=== PATIENT | female | born 1940 | race Caucasian/White ===

== ENCOUNTER 2016-12-29 22:14 | Emergency (ER) | payer OTHER, BC ==
[~2016-12-29] VITALS: Ht 147.3 cm; Wt 57.5 kg
[2016-12-29 22:27] VITALS: Ht 147.3 cm; Wt 57.5 kg
[2016-12-30] MEDS ORDERED: SOD CHLORIDE 0.9% 500 ML IV STA (00:18)
[2016-12-30] MEDS ORDERED: ONDANSETRON 4 MG INJ IV STA (00:18)
[2016-12-30 00:21] VITALS: BP 144/89; PULSE 84; RESP 25; TEMP 98.2
[2016-12-30 00:28] LABS: ADD SCAN DIFF NO
[2016-12-30 00:30] LABS: BASOPHILS % 0.2 % (0.0-2.0); EOSINOPHILS # 0.1 10^3/ul (0.0-0.5); EOSINOPHILS % 0.4 % (0.0-7.0); HEMOGLOBIN 14.7 g/dl (12.0-16.0); LYMPHOCYTES % 8.5 % (15.0-51.0); MEAN CORPUSCULAR HEMOGLOBIN 29.2 pg (29.0-33.0); MEAN CORPUSCULAR HGB CONC 32.7 g/dl (32.0-37.0); MEAN CORPUSCULAR VOLUME 89.3 fl (82.0-101.0); MEAN PLATELET VOLUME 9.9 fl (7.4-10.4); MONOCYTE # 0.9 10^3/ul (0.3-0.9); MONOCYTES % 7.5 % (0.0-11.0); NEUTROPHIL # 9.6 10^3/ul (1.6-7.5); PLATELET COUNT 247 10^3/UL (140-415); RED BLOOD COUNT 5.04 10^6/ul (4.20-5.40); RED CELL DISTRIBUTION WIDTH 12.9 % (11.5-14.5); WHITE BLOOD COUNT 11.5 10^3/ul (4.8-10.8)
[2016-12-30 00:39] LABS: POTASSIUM 3.9 mmol/L (3.5-5.1)
[2016-12-30 00:41] LABS: BILIRUBIN,INDIRECT 0.1 mg/dl (0-1.1); CREATININE 0.41 mg/dl (0.44-1.00)
[2016-12-30 00:42] LABS: ALBUMIN/GLOBULIN RATIO 1.42; BILIRUBIN,TOTAL 0.1 mg/dl (0.2-1.3); CALCIUM 8.9 mg/dl (8.4-10.2); TOTAL PROTEIN 6.8 g/dl (6.1-8.1)
[2016-12-30 00:50] LABS: INR 0.99; PROTIME 13.1 Sec (12.2-14.2)
[2016-12-30 00:51] LABS: PARTIAL THROMBOPLASTIN TIME 24.7 Sec (25.0-35.0)
[2016-12-30 00:54] LABS: TROPONIN-I 0.062 ng/ml (0.00-0.12)
[2016-12-30 01:32] LABS: ADD UMIC YES; URINE BILIRUBIN (Dip) NEGATIVE (NEGATIVE); URINE BLOOD (Dip) NEGATIVE (NEGATIVE); URINE COLOR LT. YELLOW (YELLOW); URINE GLUCOSE (Dip) NEGATIVE (NEGATIVE); URINE KETONES (Dip) NEGATIVE (NEGATIVE); URINE LEUKOCYTE ESTERASE (Dip) NEGATIVE (NEGATIVE); URINE NITRITE (Dip) NEGATIVE (NEGATIVE); URINE TOTAL PROTEIN (Dip) 1+ (NEGATIVE); URINE UROBILINOGEN (Dip) 0.2 E.U./dL (0.1-1.0)
[2016-12-30 03:05] LABS: SQUAMOUS EPITHELIAL CELL,UR RARE; URINE RBCS NONE SEEN /HPF (0)
--- NOTE | 2016-12-30 03:10 | RADRPT ---
PROCEDURE: XR Chest. CLINICAL INDICATION: Pain. TECHNIQUE: Single frontal chest x-ray. COMPARISON: None. FINDINGS: Heart is mildly enlarged.. There is no CHF.. No focal infiltrate is seen. There is no pleural effu jamey. There is no pneumothorax. The osseous structures are unremarkable. IMPRESSION: Mild cardiomegaly. No focal infiltrate or CHF. RPTAT: [facility]VK .Arvin Joy MD, Date Time Electronically viewed and signed by .Arvin Joy MD, on 12/30/2016 03:10 .K/
--- NOTE | 2016-12-30 04:44 | ERD ---
ER Documentation Chief Complaint Date/Time DATE: 12/30/16 TIME: 04:36 Chief Complaint abd pain/vomiting/cough x 1 day HPI 76-year-old female presenting with nausea and vomiting for the past few hours. Her vomiting is nonbloody and nonbilious. She denies any associated chest pain or abdominal pain. No associated headaches, dizziness, or focal weakness. She states that she has been coughing today without any phlegm. Otherwise she has been feeling okay. No diarrhea or constipation. No dysuria, hematochezia or melena. ROS All systems reviewed and are negative except as per history of present illness. Allergies Allergies: Coded Allergies: No Known Drug Allergies (Verified Allergy, Unknown, 12/29/16) PMhx/Soc Medical and Surgical Hx: pt denies Surgical Hx History of Surgery: No Hx Neurological Disorder: No Hx Respiratory Disorders: No Hx Cardiac Disorders: No Hx Psychiatric Problems: Yes (DEPRESSION) Hx Miscellaneous Medical Probl: No (HYPOTHYROID, NEUROTIC LEG PAIN) Hx Alcohol Use: No Hx Substance Use: No Hx Tobacco Use: No Smoking Status: Never smoker FmHx Family History: No diabetes Physical Exam Vitals Vital Signs Date Time Temp Pulse Resp B/P Pulse Ox O2 Delivery O2 Flow Rate FiO2 12/30/16 00:21 98.2 84 25 144/89 97 Room Air 12/29/16 22:27 99.8 90 20 182/81 97 Physical Exam Const: Pleasant, laughing, no distress, nontoxic Head: Atraumatic Eyes: Normal Conjunctiva, Sean, EOMI, no nystagmus ENT: Normal External Ears, Nose and Mouth. Neck: Full range of motion..~ No meningismus. Resp: Clear to auscultation bilaterally Cardio: Regular rate and rhythm, no murmurs Abd: Soft, non tender, non distended. No rebound or guarding. Normal bowel sounds Skin: No petechiae or rashes Back: No midline or flank tenderness Ext: No cyanosis, or edema Neur: Awake and alert and oriented 3, cranial nerves intact, strength and sensations intact in all 4 extremities, normal gait Psych: Normal Mood and Affect Result Diagram: 12/30/16 0015 12/30/16 0015 Results 24 hrs Laboratory Tests Test 12/30/16 00:15 12/30/16 00:35 3/12/17 01:15 Activated Partial Thromboplast Time 24.7Sec Alanine Aminotransferase (ALT/SGPT) 32IU/L Albumin 4.0g/dl Albumin/Globulin Ratio 1.42 Alkaline Phosphatase 101IU/L Anion Gap 17 Aspartate Amino Transf (AST/SGOT) 23IU/L Basophils # 0.010^3/ul Basophils % 0.2% Blood Urea Nitrogen 26mg/dl Calcium Level 8.9mg/dl Carbon Dioxide Level 27mmol/L Chloride Level 103mmol/L Creatinine 0.41mg/dl Direct Bilirubin 0.00mg/dl Eosinophils # 0.110^3/ul Eosinophils % 0.4% Globulin 2.80g/dl Glucose Level 144mg/dl Hematocrit 45.0% Hemoglobin 14.7g/dl INR International Normalized Ratio 0.99 Indirect Bilirubin 0.1mg/dl Lipase 93U/L Lymphocytes # 1.010^3/ul Lymphocytes % 8.5% Mean Corpuscular Hemoglobin 29.2pg Mean Corpuscular Hemoglobin Concent 32.7g/dl Mean Corpuscular Volume 89.3fl Mean Platelet Volume 9.9fl Monocytes # 0.910^3/ul Monocytes % 7.5% Neutrophils # 9.610^3/ul Neutrophils % 83.0% Nucleated Red Blood Cells # 0.010^3/ul Nucleated Red Blood Cells % 0.0/100WBC Platelet Count 57245^3/UL Potassium Level 3.9mmol/L Prothrombin Time 13.1Sec Prothrombin Time Ratio 1.0 Red Blood Count 5.0410^6/ul Red Cell Distribution Width 12.9% Sodium Level 143mmol/L Total Bilirubin 0.1mg/dl Total Protein 6.8g/dl Troponin I 0.062ng/ml White Blood Count 11.510^3/ul Bedside Glucose 130mg/dL Lactic Acid Level 1.1mmol/L Urine Bilirubin NEGATIVE Urine Clarity CLEAR Urine Color LT. YELLOW Urine Glucose NEGATIVE% Urine Hemoglobin NEGATIVE Urine Ketones NEGATIVE Urine Leukocyte Esterase NEGATIVE Urine Microscopic RBC NONE SEEN/HPF Urine Microscopic WBC 5-10/HPF Urine Nitrite NEGATIVE Urine Specific [place] 1.025 Urine Squamous Epithelial Cells RARE Urine Total Protein 1+ Urine Urobilinogen 0.2 E.U./dL Urine pH 6.5 Current Medications Medications (Trade) Dose Ordered Sig/Carolyn Route PRN Reason Start Time Stop Time Status Last Admin Dose Admin Sodium Chloride (NS) 500 ml @ 500 mls/hr Q1H STAT IV 12/30/16 00:18 12/30/16 01:17 DC 12/30/16 00:45 Ondansetron HCl (Zofran Inj) 4 mg ONCE STAT IV 12/30/16 00:18 12/30/16 00:25 DC 12/30/16 00:45 Procedures/MDM ED course EMERGENT LABS AND DIAGNOSTIC STUDIES: Lab Results above were reviewed and interpreted by me. No significant abnormalities 12-lead EKG was interpreted by Brittany Erickson MD: Normal Sinus Rhythm with premature supraventricular complex LVH No acute ST or T wave changes suggestive of acute ischemia or STEMI. Radiology Results as interpreted by Radiology below were reviewed by SIsaac Erickson MD: Chest x-ray without acute abnormality Initial Nursing notes reviewed. Previous Medical Records requested via the Electronic Health Record. EMERGENCY DEPARTMENT COURSE / MEDICAL DECISION MAKING: Patient is presenting with complaints of cough with a few episodes of vomiting today. Her vitals are stable and she is afebrile. There is no evidence of acute surgical abdomen. She does not even complain of abdominal pain at this time. I do not think that her vomiting is neurological in etiology. I have a low suspicion for intracranial hemorrhage, meningitis, or intracranial mass. I doubt acute coronary syndrome or dissection. The patient's vomiting resolved when she arrived to the ER. She was given anti-emetics with improvement of her symptoms. Her labs were all unremarkable. She does not have any evidence of pneumonia on her chest x-ray. There is no evidence of UTI. Repeat abdominal exam was done and was benign. I believe the patient is stable for discharge at this time with continued outpatient follow-up. Return precautions were discussed. She was discharged in stable condition. Patient's blood pressure was elevated (>120/80) but appears stable without evidence of hypertensive emergency or urgency. The patient was counseled about the risks of hypertension and urged to pursue outpatient monitoring and therapy within a week with their primary care physician. Departure Diagnosis: Primary Impression: Nausea and vomiting Vomiting type: unspecified Vomiting Intractability: non-intractable Qualified Code: R11.2 - Non-intractable vomiting with nausea, unspecified vomiting type Condition: Stable Patient Instructions: Nausea and Vomiting-Adult Additional Instructions: Regrese a la pedrito de emergencias si estas empeorando. Serena nakia emgan con chung medico primario en 1-2 mahoney. JORGE ERICKSON MD Dec 30, 2016 04:44
== END 2016-12-30 03:31 | disposition home or self-care (01) ==
LOC: E/R 22:14
DX: R11.2 Nausea with vomiting, unspecified (principal); E03.9 Hypothyroidism, unspecified; R06.02 Shortness of breath
CPT/HCPCS: 36415; 71010; 80053; 81001; 82962; 83605; 83690; 84484; 85025; 85610; 85730; 96374; 99285; J2405; J7040; 81003

== ENCOUNTER 2017-05-16 01:58 | Emergency (ER) | payer MEDICARE, BC ==
[~2017-05-16] VITALS: Ht 152.4 cm; Wt 59.0 kg
[2017-05-16 02:06] VITALS: Ht 152.4 cm; Wt 59.0 kg
[2017-05-16] MEDS ORDERED: ONDANSETRON 4 MG INJ IV STA (02:31)
[2017-05-16] MEDS ORDERED: SOD CHLORIDE 0.9% 1,000 ML IV STA (02:31)
--- NOTE | 2017-05-16 02:39 | ERD ---
ER Documentation Chief Complaint Date/Time DATE: 05/16/17 TIME: 02:38 Chief Complaint headache x2 days, vomited x7 within past 2 days. denies abd pain HPI 77-year-old female history of hypertension presents with headache since yesterday with nausea vomiting. Patient states that she has a bitemporal achy diffuse headache, associated with 7 episodes of nonbloody nonbilious emesis starting yesterday. She denies any fevers or chills, diarrhea. She has not taken anything for pain so far. ROS All systems reviewed and are negative except as per history of present illness. Medications Home Meds Active Scripts Ondansetron (Ondansetron Odt) 4 Mg Tab.rapdis, 4 MG PO Q6H Y for NAUSEA AND/OR VOMITING, #10 TAB Prov:CHAR CARIAS PA-C 05/16/17 Cephalexin* (Keflex*) 500 Mg Capsule, 500 MG PO TID for 7 Days, CAP Prov:CHAR CARIAS PA-C 05/16/17 Allergies Allergies: Coded Allergies: No Known Drug Allergies (Verified Allergy, Unknown, 12/29/16) PMhx/Soc History of Surgery: No Hx Neurological Disorder: No Hx Respiratory Disorders: No Hx Cardiac Disorders: No Hx Psychiatric Problems: Yes (DEPRESSION) Hx Miscellaneous Medical Probl: No (HYPOTHYROID, NEUROTIC LEG PAIN, HTN) Hx Alcohol Use: No Hx Substance Use: No Hx Tobacco Use: No Smoking Status: Never smoker Physical Exam Vitals Vital Signs Date Time Temp Pulse Resp B/P Pulse Ox O2 Delivery O2 Flow Rate FiO2 05/16/17 02:06 99.6 97 18 140/79 95 Physical Exam General: Well-developed, well-nourished. The patient appears in no acute distress. HEENT: Head is normocephalic, atraumatic. No scleral icterus. Oropharynx is clear. Neck: Supple. Nontender. Lungs: Clear to auscultation. Normal air movement. Heart: Regular rate and rhythm. S1 and S2 are normal. No murmurs, gallops, or rubs. Abdomen: Soft, nontender, nondistended. Bowel sounds are normoactive. Extremities: No clubbing or cyanosis. Normal pulses. Moving extremities x 4. No weakness. Neurologic: Alert and oriented 3. No focal deficits. Speech and gait normal. Skin: Normal turgor. No rash or lesions. Result Diagram: 05/16/17 0243 05/16/17 0243 Results 24 hrs Laboratory Tests Test 05/16/17 02:43 White Blood Count 14.010^3/ul Red Blood Count 4.8610^6/ul Hemoglobin 14.3g/dl Hematocrit 43.3% Mean Corpuscular Volume 89.1fl Mean Corpuscular Hemoglobin 29.4pg Mean Corpuscular Hemoglobin Concent 33.0g/dl Red Cell Distribution Width 12.5% Platelet Count 62742^3/UL Mean Platelet Volume 9.5fl Neutrophils % 86.4% Lymphocytes % 6.6% Monocytes % 5.5% Eosinophils % 0.8% Basophils % 0.2% Nucleated Red Blood Cells % 0.0/100WBC Neutrophils # 12.110^3/ul Lymphocytes # 0.910^3/ul Monocytes # 0.810^3/ul Eosinophils # 0.110^3/ul Basophils # 0.010^3/ul Nucleated Red Blood Cells # 0.010^3/ul Urine Color YELLOW Urine Clarity CLEAR Urine pH 5.0 Urine Specific [place] 1.021 Urine Ketones NEGATIVEmg/dL Urine Nitrite NEGATIVEmg/dL Urine Bilirubin NEGATIVEmg/dL Urine Urobilinogen NEGATIVEmg/dL Urine Leukocyte Esterase 1+Bip[place]/ul Urine Microscopic RBC 2/HPF Urine Microscopic WBC 6/HPF Urine Squamous Epithelial Cells FEW/HPF Urine Mucus FEW/HPF Urine Hemoglobin NEGATIVEmg/dL Urine Glucose NEGATIVEmg/dL Urine Total Protein NEGATIVEmg/dl Sodium Level 147mmol/L Potassium Level 4.2mmol/L Chloride Level 103mmol/L Carbon Dioxide Level 29mmol/L Anion Gap 19 Blood Urea Nitrogen 24mg/dl Creatinine 0.61mg/dl Glucose Level 164mg/dl Calcium Level 9.5mg/dl Total Bilirubin 0.2mg/dl Direct Bilirubin 0.00mg/dl Indirect Bilirubin 0.2mg/dl Aspartate Amino Transf (AST/SGOT) 26IU/L Alanine Aminotransferase (ALT/SGPT) 32IU/L Alkaline Phosphatase 91IU/L Total Protein 7.3g/dl Albumin 4.4g/dl Globulin 2.90g/dl Albumin/Globulin Ratio 1.51 Current Medications Medications (Trade) Dose Ordered Sig/Carolyn Route PRN Reason Start Time Stop Time Status Last Admin Dose Admin Sodium Chloride (NS) 1,000 ml @ 1,000 mls/hr Q1H STAT IV 05/16/17 02:31 05/16/17 03:30 DC 05/16/17 02:47 Ondansetron HCl (Zofran Inj) 4 mg ONCE STAT IV 05/16/17 02:31 05/16/17 02:35 DC 05/16/17 02:47 Ibuprofen (Motrin) 600 mg ONCE ONCE PO 05/16/17 03:00 05/16/17 03:01 DC 05/16/17 02:47 Cephalexin (Keflex) 500 mg ONCE ONCE PO 05/16/17 04:00 05/16/17 04:01 DIAGNOSTIC IMAGING REPORT Patient: AFRICA BROWN : 1940 Age: 77 Sex: F MR #: [id number] DOS: 05/16/17 0231 Ordering MD: CHAR CARIAS PA-C Location: [facility] Room/Bed: PROCEDURE: CT Brain without contrast. CLINICAL INDICATION: Headache. Nausea and vomiting. TECHNIQUE: Axial images from the skull base through the vertex without IV contrast. Multiplanar reformatted images were made. Images were reviewed on a PACS workstation. The CTDIvol is 45.01 mGy and the DLP is 720.23 mGycm. One or more of the following dose reduction techniques were used: automated exposure control, adjustment of the mA and/or kV according to patient size, or use of iterative reconstruction technique. COMPARISON: None. FINDINGS: The ventricles and cisterns are normal for age. Minimal cortical atrophy. There is no evidence for territorial infarction or intracranial hemorrhage. No mass or midline shift is seen. No extra-axial fluid collection is seen. small probable polyp or retention cyst of the right maxillary sinus. Mild mucoperiosteal thickening of the ethmoids. IMPRESSION: No definite acute intracranial abnormality. RPTAT: [facility] Physician Darell Date Time Electronically viewed and signed by Isabel Luevano Physician on 05/16/2017 03 :16 LE/ CC: CHAR CARIAS PA-C Procedures/[facility] ED course: Patient was given fluid bolus of normal saline, ibuprofen for pain with Zofran 4 mg IV. She was observed in the emergency department, states that she is feeling much better at this time. She was given a dose of Keflex 500 mg p.o. Medical decision makin-year-old female presents with headache and nausea vomiting that started yesterday. Patient comes in with a urinary tract infection with positive leukocyte esterase and 6 white blood cells. She comes with headache, nausea vomiting was consistent with symptoms associated with a urinary tract infection. White blood cell count is 14,000, likely due to UTI, nausea vomiting. She does not have any abdominal pain, signs of bowel obstruction, dehydration. CT head was also obtained negative for intracranial hemorrhage. She clinically she is well appearing, neurologically intact and is stable for discharge. The case was reviewed and discussed with Dr. Vázquez who agrees with the plan of care including labs, treatment, and advanced imaging as appropriate. Patient's blood pressure was elevated (>120/80) but appears stable without evidence of hypertension emergency or urgency. The patient was counseled about the risks of hypertension and urged to pursue outpatient monitoring and therapy within a week with their primary care physician. Departure Diagnosis: Primary Impression: UTI (urinary tract infection) Additional Impressions: Nausea and vomiting Headache Condition: Good CHAR CARIAS PA-C May 16, 2017 02:39
[2017-05-16] MEDS ORDERED: IBUPROFEN 600 MG TAB PO ONE (03:00)
[2017-05-16 03:09] LABS: BASOPHILS % 0.2 % (0.0-2.0); EOSINOPHILS # 0.1 10^3/ul (0.0-0.5); EOSINOPHILS % 0.8 % (0.0-7.0); HEMATOCRIT 43.3 % (37.0-47.0); HEMOGLOBIN 14.3 g/dl (12.0-16.0); LYMPHOCYTES # 0.9 10^3/ul (0.8-2.9); LYMPHOCYTES % 6.6 % (15.0-51.0); MEAN CORPUSCULAR HEMOGLOBIN 29.4 pg (29.0-33.0); MEAN CORPUSCULAR VOLUME 89.1 fl (82.0-101.0); MEAN PLATELET VOLUME 9.5 fl (7.4-10.4); MONOCYTE # 0.8 10^3/ul (0.3-0.9); MONOCYTES % 5.5 % (0.0-11.0); NEUTROPHIL # 12.1 10^3/ul (1.6-7.5); NEUTROPHILS % 86.4 % (39.0-77.0); PLATELET COUNT 249 10^3/UL (140-415); RED BLOOD COUNT 4.86 10^6/ul (4.20-5.40); RED CELL DISTRIBUTION WIDTH 12.5 % (11.5-14.5)
[2017-05-16 03:15] LABS: ADD UMIC YES; UR ASCORBIC ACID 20 mg/dL (NEGATIVE); UR BILIRUBIN (Dip) NEGATIVE (NEGATIVE); UR BLOOD (Dip) NEGATIVE (NEGATIVE); UR CLARITY CLEAR (CLEAR); UR COLOR YELLOW (YELLOW); UR GLUCOSE (Dip) NEGATIVE (NEGATIVE); UR KETONES (Dip) NEGATIVE (NEGATIVE); UR LEUKOCYTE ESTERASE (Dip) 1+ Leu/ul (NEGATIVE); UR MUCUS FEW /HPF (NONE SEEN); UR NITRITE (Dip) NEGATIVE (NEGATIVE); UR RBC 2 /HPF (0-5); UR SPECIFIC GRAVITY (Dip) 1.021 (1.003-1.030); UR SQUAMOUS EPITHELIAL CELL FEW /HPF (FEW); UR TOTAL PROTEIN (Dip) NEGATIVE (NEGATIVE); UR UROBILINOGEN (Dip) NEGATIVE (NEGATIVE)
--- NOTE | 2017-05-16 03:16 | RADRPT ---
PROCEDURE: CT Brain without contrast. CLINICAL INDICATION: Headache. Nausea and vomiting. TECHNIQUE: Axial images from the skull base through the vertex without IV contrast. Multiplanar r eformatted images were made. Images were reviewed on a PACS workstation. The CTDIvol is 45.01 mGy and the DLP is 720.23 mGycm. One or more of the following dose reduction techniques were used: auto mated exposure control, adjustment of the mA and/or kV according to patient size, or use of iterativ e reconstruction technique. COMPARISON: None. FINDINGS: The ventricles and cisterns are normal for age. Minimal cortical atrophy. There is no evidence for territorial infarction or intracranial hemorrhage. No mass or midline shift is seen. No extra-axi al fluid collection is seen. small probable polyp or retention cyst of the right maxillary sinus. Mild mucoperiosteal thickening of the ethmoids. IMPRESSION: No definite acute intracranial abnormality. RPTAT: [facility] Physician Darell Date Time Electronically viewed and signed by Physician Darell on 05/16/2017 03:16 LIAS/
[2017-05-16 03:28] LABS: ALBUMIN 4.4 g/dl (3.3-4.9); ALBUMIN/GLOBULIN RATIO 1.51; BILIRUBIN,INDIRECT 0.2 mg/dl (0-1.1); BILIRUBIN,TOTAL 0.2 mg/dl (0.2-1.3); CALCIUM 9.5 mg/dl (8.4-10.2); CREATININE 0.61 mg/dl (0.44-1.00); POTASSIUM 4.2 mmol/L (3.5-5.1); TOTAL PROTEIN 7.3 g/dl (6.1-8.1)
[2017-05-16] MEDS ORDERED: CEPH-443 PO (03:56)
[2017-05-16] MEDS ORDERED: ONDA4TAB14 PO (03:56)
[2017-05-16] MEDS ORDERED: CEPHALEXIN 500 MG CAP PO ONE (04:00)
== END 2017-05-16 04:10 | disposition home or self-care (01) ==
LOC: FTE 01:58
DX: N39.0 Urinary tract infection, site not specified (principal); R11.2 Nausea with vomiting, unspecified; I10 Essential (primary) hypertension; E03.9 Hypothyroidism, unspecified
CPT/HCPCS: 36415; 70450; 80053; 81001; 85025; 96374; 99285; J2405; J7030